=== PATIENT | male | born 1950 | race Caucasian/White ===

== ENCOUNTER → 2017-01-15 | Day surgery (SDC) | payer OTHER ==
[~2017-01-15] VITALS: Ht 177.8 cm; Wt 88.2 kg
[~2017-01-15] MED LIST: ACETAMINOPHEN 1000 MG/100 ML VIAL IV ONE; ASPI81TA11 PO; CHLORHEXIDINE GLUCONATE 0.12% 15 ML CUP ONE; CHLORHEXIDINE GLUCONATE 2 % 1 PACK (2 CLOTHS) TOPICAL PRN; DEXAMETHASONE SOD PHOS 4 MG/ML VIAL ONE; DO NOT ADM ANY ANTICOAGULANT DRUGS PRN; FAMOTIDINE 20 MG/2 ML VIAL ONE; HYDROmorphone HCL PF 2 MG/ML VIAL ONE; INSULIN HUMAN REGULAR 1,000 UNITS/10 ML VIAL SQ PRN; LACTATED RINGER'S 1000 ML IV PRN; LIDOCAINE 1%/EPINEPHrine 1:100,000 SOLN 20 ML VIAL ONE; LISI40TA PO; METOCLOPRAMIDE HCL 10 MG/2 ML VIAL ONE; METOPROLOL TARTRATE 25 MG TAB PO PRN; MIDAZOLAM HCL 2 MG/2 ML VIAL ONE; ONDANSETRON HCL 4 MG/2 ML VIAL IV PUSH ONE; POVIDONE IODINE 5% (ANTISEPSIS KIT) 4 APPLICATIONS EACH NARE PRN; PROPOFOL 200 MG/20 ML AMP IV ONE; SIMV20TA PO; SODIUM CHLORID 0.9% 500 ML IV PRN; SUGAMMADEX SODIUM 200 MG/2 ML VIAL IV PUSH ONE; ceFAZolin INJ 1,000 MG VIAL IV ONE; fentaNYL CITRATE 250 MCG/5 ML AMP ONE; oxyCODONE/ACETAMINOPHEN 5 MG/325 MG TAB PO PRN
--- NOTE | 2017-01-15 07:42 | MH ---
cc: PADILLA CHOWDARY D.D.S. DATE OF ADMISSION 01/15/2017 DATE OF 1950 PREOPERATIVE DIAGNOSIS T1, N0, M0 squamous-cell carcinoma left posterior tongue. PET scan and CT scan in the neck are negative. POSTOPERATIVE DIAGNOSIS T1, N0, M0 squamous-cell carcinoma left posterior tongue. PET scan and CT scan in the neck are negative. PROCEDURE TO BE PERFORMED Partial glossectomy with frozen sections HISTORY OF PRESENT ILLNESS Mr. Contreras is a gentleman who presented to me with a history of squamous cell carcinoma. He was worked up at other institutions and had been treated for this years ago. He came to me after a rather complete workup showed a small area on the left posterior tongue that extends down the pharyngeal pillars of a small lesion there that after evaluation by ENT does not extend down the posterior pharynx at all. Workup from the CT and PET scan shows this is a small lesion less than a centimeter in this area. Plan is to go in and remove the frozen sections and then he will be discharged home the same day. PAST MEDICAL HISTORY Includes: 1. Hypertension 2. He grinds his teeth. ALLERGIES He has no allergies. MEDICATIONS He takes: 1. Simvastatin 2. Baby aspirin day 3. Lisinopril once a day REVIEW OF SYSTEMS HEAD: His head is normocephalic. No scars or tattoos. EYES: Pupils equal, round and reactive to light and accommodation. Extraocular muscles are intact. His visual acuity is grossly intact. EARS: TMs are clear. EARS, NOSE, AND THROAT: Oral cavity, again, he has a small lesion on the left posterior tongue on the left side that we are going to remove today, otherwise normal dentition. No other pathology noted. CARDIAC: He has some hypertension. ENDOCRINE: He has no history of diabetes or hormone therapy. HEMATOLOGIC: No anemia or transfusions. NEUROLOGIC: No sensory or motor disturbances. PHYSICAL EXAM CARDIOVASCULAR: Regular rate and rhythm. S1 and S2. No murmurs. RESPIRATORY: Bilaterally clear to auscultation. ABDOMEN: Soft and nontender. Bowel sounds are present in all four quadrants. GI/: Deferred. EXTREMITIES: He has good pulses, equal strength. NEUROLOGIC: Alert and oriented x3. PLAN My plan for him is to go to [facility] for partial glossectomy of the left posterior tongue with frozen sections and closure. SHIRA Marie /7:16 AM /7:34 AM
[2017-01-15 13:37] VITALS: BP_SYST 130; BP_SYST 140; BP_DIAS 78; BP_DIAS 88; PULSE 78; RESP 18; TEMP 98.5; O2SAT 97
[2017-01-15 17:35] VITALS: BP 142/84; PULSE 78; RESP 16; TEMP 96.9; O2SAT 95
--- NOTE | 2017-01-16 14:26 | MP ---
cc: PADILLA CHOWDARY D.D.S. DATE OF SURGERY: 01/15/2017 DATE OF : 1950 HISTORY I was asked to evaluate a 66-year-old white male who was sent to the office with a biopsy from a scrapping by a first beater back in May showing a squamous cell carcinoma of the posterior left tongue. He comes to my office approximately two weeks ago with no evidence of a lesion. In the area where the scraping was done back posterior on the base the tongue were solely papilla at the glossopharyngeal pillars. Due to the posterior extent of the lesion, even though very small, considered a T1,N0,M0 lesion, the plan was to take him to the OR for biopsies and frozen sections. PREOPERATIVE DIAGNOSIS T1,N0,M0 squamous cell carcinoma of the left posterior tongue less than a centimeter in size. POSTOPERATIVE DIAGNOSIS T1,N0,M0 squamous cell carcinoma of the left posterior tongue less than a centimeter in size. PROCEDURE PERFORMED Partial glossectomy with frozen sections x3, and one permanent specimen sent x1. SURGEON Haresh INVESTIGATION OFFICER [employer] FLUIDS Crystalloid 800 cc. SPECIMEN One permanent, three frozen. COMPLICATIONS None. JUSTIFICATION Mr. Contreras comes to the office again as described above with a really not clinically evident lesion in the left fully papilla region where there was a scraping done back in May showing it was a squamous cell carcinoma superficial. Plan is to the OR for removal of frozen sections to make sure we have no evidence of any lesion. DETAILS OF PROCEDURE On 01/15/2017 the patient was seen in the holding area at [place] and brought to OR #11 where he was intubated by Anesthesia. Peridex rinse was used. Prepped the area intraorally. Local anesthesia was given with 1% Xylocaine with 1:100,000 epinephrine, total of 5 cc in the posterior tongue base and pharyngeal pillars. An incision was made with a 15 blade on a long handle, taking an outline of what appears to be the area where the lesion was scraped and then lateral, medial and posterolateral frozens were taken as well down to the tongue muscle to be evaluated. Irrigated with saline. Bovie used for hemostasis. Closure with a 4-0 Vicryl along the tongue into the posterior pharyngeal wall area. Frozens came back as all negative for any tumor. The area was irrigated. Gauze removed from the throat back. Extubated and taken to Recovery with vital signs stable. SHIRA Marie /4:39 PM /2:10 PM
--- NOTE | 2017-01-16 16:06 | EKG ---
Date Performed: 01/15/2017 Time Performed: 13:39:51 PTAGE: 66 years EKG: Sinus rhythm POSSIBLE RIGHT VENTRICULAR CONDUCTION DELAY BORDERLINE ECG NO PREVIOUS TRACING DOCTOR: Mario Beasley Interpretating Date/Time 01/16/2017 16:05:56
== END | disposition home or self-care (01) ==
LOC: HSDC 12:49
PROVIDERS: ATTEND Dentist Oral and Maxillofacial Surgery
DX: C01 Malignant neoplasm of base of tongue (principal); I10 Essential (primary) hypertension; Z01.810 Encounter for preprocedural cardiovascular examination
CPT/HCPCS: 00170; 41120; 88305; 88331; 93005; J0131; J0690; J1100; J2250; J2405; J2765; J3010; J7120; J1170

== ENCOUNTER → 2017-05-25 | Day surgery (SDC) | payer OTHER ==
[~2017-05-25] MED LIST changes: -ACETAMINOPHEN 1000 MG/100 ML VIAL IV ONE; +BUPIVACAINE/EPINEPHRINE 0.5% PF 10 ML VIAL ONE; -CHLORHEXIDINE GLUCONATE 0.12% 15 ML CUP ONE; -CHLORHEXIDINE GLUCONATE 2 % 1 PACK (2 CLOTHS) TOPICAL PRN; -DEXAMETHASONE SOD PHOS 4 MG/ML VIAL ONE; -DO NOT ADM ANY ANTICOAGULANT DRUGS PRN; -FAMOTIDINE 20 MG/2 ML VIAL ONE; -HYDROmorphone HCL PF 2 MG/ML VIAL ONE; -INSULIN HUMAN REGULAR 1,000 UNITS/10 ML VIAL SQ PRN; +KETOROLAC TROMETHAMINE 30 MG/ML (IVP) VIAL IV PUSH ONE; +LACTATED RINGER'S 1000 ML INJ 1,000 ML ONE; -LACTATED RINGER'S 1000 ML IV PRN; -LIDOCAINE 1%/EPINEPHrine 1:100,000 SOLN 20 ML VIAL ONE; +LIDOCAINE 1%/EPINEPHrine 1:100,000 SOLN 30 ML VIAL ONE; -METOCLOPRAMIDE HCL 10 MG/2 ML VIAL ONE; -METOPROLOL TARTRATE 25 MG TAB PO PRN; -POVIDONE IODINE 5% (ANTISEPSIS KIT) 4 APPLICATIONS EACH NARE PRN; -SODIUM CHLORID 0.9% 500 ML IV PRN; -SUGAMMADEX SODIUM 200 MG/2 ML VIAL IV PUSH ONE; +ceFAZolin 2 GM PREMIX 50 ML ONE; -ceFAZolin INJ 1,000 MG VIAL IV ONE; -fentaNYL CITRATE 250 MCG/5 ML AMP ONE; +oxyCODONE/ACETAMINOPHEN 5 MG/325 MG TAB ONE; -oxyCODONE/ACETAMINOPHEN 5 MG/325 MG TAB PO PRN
--- NOTE | 2017-05-25 13:57 | TN ---
cc: JHONATAN LUU MD DATE OF SURGERY: 05/25/2017 PREOPERATIVE DIAGNOSIS Incarcerated umbilical hernia. POSTOPERATIVE DIAGNOSIS Incarcerated umbilical hernia. PROCEDURE PERFORMED Open repair of incarcerated umbilical hernia with onlay mesh. SURGEON Dr. Jhonatan Luu. [employer] See OR sheet. ANESTHESIA General endotracheal. IV FLUIDS See anesthesia sheet. ESTIMATED BLOOD LOSS 5 cc. DRAINS None. COMPLICATIONS None. WOUND CLASSIFICATION Clean. SPECIMEN None. FINDINGS Omental fat incarcerated in umbilical hernia. INDICATION The patient is a 67-year-old male who presents with umbilical hernia. He states the hernia is easily reducible, however, lately has become incarcerated with omental fat; ultrasound confirmed this. The decision was made for open repair of umbilical hernia. DETAILS OF PROCEDURE The patient was taken to the operating suite and placed in supine position. He was prepped and draped in the usual sterile fashion after induction of general endotracheal anesthesia. A brief timeout was done stating correct patient, procedure and surgical site, and all were in agreement with this. Attention first directed to the umbilicus where local anesthetic was injected. A small infraumbilical curvilinear incision was made with a 15 blade. Further dissection was done with Bovie electrocautery and a hemostat to dissect out and identify the incarcerated herniated umbilical fat in the hernia defect. This was reduced back down into the abdominal cavity. Dissection was done down to good clean fascia. The hernia sac was resected and the subcutaneous tissue was cleaned off along the fascia. This was done in order to get good purchase. First primary repair was done with #1 Prolene sutures in [id number] fashion x4. Then [employer] synthetic onlay mesh was obtained and cut to appropriate size, approximately 3 cm x 2.5 cm. This was placed in the wound bed. This was secured in place with eight #1 Ethibond sutures. Hemostasis was obtained with Bovie electrocautery. The incision was irrigated thoroughly, local anesthetic injected. The umbilical stalk was then re-approximated to the fascia. The abdominal wound was closed in layers using 3-0 Vicryl followed by 4-0 Monocryl. Sterile dressing was placed including Steri-Strips and Tegaderm. The patient tolerated the procedure well with no intraoperative complication. The patient was extubated and taken stable to PACU. MD MAGDA Calero /1:41 PM /1:48 PM
== END | disposition home or self-care (01) ==
LOC: ESDC 08:13
PROVIDERS: ATTEND Surgery
DX: K42.0 Umbilical hernia with obstruction, without gangrene (principal)
CPT/HCPCS: 00750; 49587; C1781; J0690; J1885; J2250; J2405; J3010; J7120